=== PATIENT | female | born 1985 | race Caucasian/White ===

== ENCOUNTER 2018-10-15 19:38 | Emergency (ER) | payer BC, OTHER, MEDICAID, SELFPAY ==
[2018-10-15 20:49] VITALS: BP 108/73; PULSE 75; RESP 18; TEMP 36.8; O2SAT 100; BMI 21.6
--- NOTE | 2018-10-15 21:12 | ED_ITS ---
HPI - Skin/Abscess/Foreign Bdy <DOC Panchal - Last Filed: 10/15/18 22:34> General Chief complaint: Skin/Abscess/Foreign Body Stated complaint: blisters on foot that are itchy on left foot Time Seen by Provider: 10/15/18 20:46 Source: patient Mode of arrival: ambulatory Limitations: no limitations History of Present Illness HPI narrative: 33-year-old healthy female that is nonsmoker here for complaint of having itching to her right foot and blisters to her right foot had a fracture to her right 5th metatarsal 2 weeks ago after she stepped awkwardly off of a step. She was placed in a postop boot and is currently waiting CT results to 5 if she needs surgery or not. She reports over the past couple days she noticed that she has some blisters to the sole of her right foot. And she also has some itchy area. She denies any new trauma to the area. No fevers no chills. Itchy and SIRS are limited to the right foot area. No other concerns or complaints at this timeframe. Related Data Allergies Allergy/AdvReac Type Severity Reaction Status Date / Time erythromycin base Allergy Verified 10/15/18 20:53 [From Erythrocin] Review of Systems <DOC Panchal - Last Filed: 10/15/18 22:34> Constitutional Denies chills, Denies fever(s), Denies lethargy and Denies weakness Eyes Denies change in vision, Denies eye discharge, Denies irritation and Denies loss of vision ENT Ears, Nose, Mouth, and Throat: Denies change in voice, Denies neck pain and Denies sore throat Cardiovascular Denies chest pain, Denies irregular heart rhythm, Denies lightheadedness, Denies palpitations, Denies dyspnea, Denies dyspnea on exertion and Denies orthopnea Respiratory Denies cough, Denies dyspnea, Denies dyspnea on exertion and Denies wheezing Gastrointestinal Gastrointestinal: Denies abdominal pain, Denies change in bowel habits, Denies diarrhea, Denies nausea and Denies vomiting Genitourinary Denies hematuria, Denies flank pain, Denies urinary incontinence and Denies urinary urgency Musculoskeletal Denies neck pain Comments: Blisters and itch to right foot Integumentary/Breasts Denies pruritus, Denies erythema, Denies rash and Denies wounds Neurologic Denies confusion, Denies loss of vision and Denies weakness Psychiatric Denies anxiety, Denies confusion, Denies depression, Denies homicidal ideation and Denies suicidal ideation Endocrine Denies palpitations Hematologic/Lymphatic Denies easy bruising Allergic/Immunologic Denies wheezing Exam <DOC Panchal - Last Filed: 10/15/18 22:34> Initial Vital Signs Initial Vital Signs: Vital Signs Temperature 98.3 F 10/15/18 20:49 Pulse Rate 75 10/15/18 20:49 Respiratory Rate 18 10/15/18 20:49 Blood Pressure 108/73 10/15/18 20:49 Pulse Oximetry 100 10/15/18 20:49 Const General: cooperative and well developed Nutritional Appearance: well nourished Orientation: alert, awake, oriented x3 and not confused HENMT Mouth: oral mucosae normal and moist mucous membranes Eyes Conjunctivae: conjunctivae normal Sclera: sclerae normal Pupils: PERRL EOM: EOM intact bilaterally Resp Effort & Inspection: normal respiratory effort, able to speak in complete sentences, no respiratory distress and no use of accessory muscles Auscultation: clear to auscultation bilaterally, no rales, no rhonchi and no wheezes Cardio Rate: regular rate Rhythm: regular rhythm Heart Sounds: no click, no gallops, no murmurs and no rubs Pulses: normal peripheral pulses Neuro General: alert, oriented x3, gait normal and no focal motor deficits Speech: speech normal Extrem Other: Approximately 3 unroofed vesicles to the sole of the right foot. Erythema along the base of the toes along with some erythema. No signs of trauma. Distal sensation is intact. Distal range of motions intact. Distal pulses are intact. <Uday Price DO - Last Filed: 10/16/18 06:37> Initial Vital Signs Initial Vital Signs: Vital Signs Temperature 98.3 F 10/15/18 20:49 Pulse Rate 75 10/15/18 20:49 Respiratory Rate 18 10/15/18 20:49 Blood Pressure 108/73 10/15/18 20:49 Pulse Oximetry 100 10/15/18 20:49 Course <DOC Panchal - Last Filed: 10/15/18 22:34> Vital Signs - 8 hr 10/15/18 20:49 Temperature 98.3 F Pulse Rate 75 Respiratory Rate 18 Blood Pressure 108/73 Pulse Oximetry 100 <Uday Price DO - Last Filed: 10/16/18 06:37> Vital Signs - 8 hr 10/15/18 20:49 Temperature 98.3 F Pulse Rate 75 Respiratory Rate 18 Blood Pressure 108/73 Pulse Oximetry 100 MDM - Skin/Abscess/Foreign Bdy <DOC Panchal - Last Filed: 10/15/18 22:34> MDM Narrative Medical decision making narrative: The blisters most likely secondary to friction due to a recently being placed in boot over the past couple of weeks. She is instructed to wear more protective soft suspect that she may be wearing the boot for prolonged periods during the day causing of foot to become damp due to perspiration. The increased wetness I believe was also started her with athlete's foot. 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 Follow up with primary care provider. She is encouraged to periodic lately remove foot and elevate foot from the boot when she is at home and is not weight-bearing. For any worsening symptoms return to the emergency room. Discharge Plan Departure Patient Disposition: Home Clinical Impression: Tinea pedis Qualifiers: Laterality: right Qualified Code(s): B35.3 - Tinea pedis Friction blister of the foot Qualifiers: Encounter type: initial encounter Laterality: right Qualified Code(s): S90.821A - Blister (nonthermal), right foot, initial encounter Discharge Date/Time: 10/15/18 21:20 Interventions: ED Discharge Assessment Last Done: 10/15/18 21:20 Instructions: DI for Athlete's Foot Activity Restrictions/Additional Instructions: Blister is a appear to be due to a friction in regards to using the boot due to recent fracture. Recommend using more padded sock to limit the friction to the foot area. When not using the boot air foot out to allowed to dry this will also help with what appears to be athlete's foot to the right foot. Use an [id number] antifungal cream as directed. Follow up with primary care provider. Follow up with Orthopedics. Return emergency room for any worsening symptoms Referrals: [facility] [Provider Group] <Uday Pepeekeo, DO - Last Filed: 10/16/18 06:37> Cosign ED Attending Cosmercedesature Attestation: I was immediately available in the department for consultation. Documentation has been reviewed. I agree with assessment and plan.
--- NOTE | 2018-10-15 21:20 | PC.NURSE ---
further assmt deferred to JOVANI Gamble
== END 2018-10-15 21:20 | disposition home or self-care (01) ==
PROVIDERS: Emergency Provider Nurse Practitioner Family
DX: S90.821A Blister (nonthermal), right foot, initial encounter (principal); B35.3 Tinea pedis
CPT/HCPCS: 99282